=== PATIENT | female | born 1995 | race American Indian/Alaskan Native ===

== ENCOUNTER 2020-02-05 18:38 | Emergency (ER) | payer MEDICAID ==
[2020-02-05 19:01] VITALS: BP 120/82
[2020-02-05 21:41] LABS: Bacteria,Urine 1+ /HPF (Negative); Bilirubin,Urine NEG (Negative); Blood,Urine NEG (Negative); Color,Urine Amber (Yellow); Hyaline Casts,Urine 1 /LPF; Mucus,Urine 1+ /HPF; Urobilinogen,Urine < 2.0 mg/dL (<2.0)
[2020-02-05 21:42] LABS: HCG Qualitative,Urine Negative (Negative)
[2020-02-05] MEDS ORDERED: ONDANSETRON 4 MG ODT TAB PO ONE (22:27)
[2020-02-05] MEDS ORDERED: LIDOCAINE-MPF (1%) 10 MG/1 ML VIAL 5 ML INFILTRATI ONE (22:27)
[2020-02-05] MEDS ORDERED: ACETAMINOPHEN 500 MG TAB PO ONE (22:27)
--- NOTE | 2020-02-05 22:51 | Emergency Department Report ---
ED Female HPI - General Chief complaint: Urogenital-Female Stated complaint: UTI Source: patient Mode of arrival: Ambulatory Limitations: No Limitations - History of Present Illness Initial comments: Patient is a A2 24-year-old -[place] female with no past medical history presents to the ED with complaint of acute onset persistent dysuria, urinary frequency and urgency, and suprapubic pressure for the last 4 days. Patient states that she tried to drink water and cranberry juice with no relief. Patient denies vaginal bleeding, vaginal discharge, nausea, vomiting, fever, chills, diarrhea, low back pain, chest pain or shortness of breath and sore throat. MD Complaint: dysuria, pelvic pain, other (Urinary frequency and urgency; supr apubic pressure) -: Sudden, days(s) (4) Location: suprapubic, other (vaginal) Radiation: non-radiating Severity scale (0 -10): 5 Quality: cramping, aching Consistency: constant Improves with: none Worsens with: urination Are you Now?: No Last Menstrual Period: 02/01/20 EDC: 11/07/20 Associated Symptoms: denies other symptoms, abdominal pain (suprapubic pressure), loss of appetite, dysuria, other (Urinary frequency and urgency). denies: vaginal discharge, vaginal bleeding, nausea/vomiting, fever/chills, headaches, hematuria, rash, seizure, shortness of breath, syncope, weakness - Related Data Sexually active: Yes : 2 Para: 0 A: 2 Previous Rx's Medication Instructions Recorded Last Taken Type Ibuprofen [Motrin] 600 mg PO Q8H PRN #20 tablet 02/05/20 Unknown Rx Ondansetron [Zofran Odt] 4 mg PO Q6HR PRN #15 tab.rapdis 02/05/20 Unknown Rx Phenazopyridine [Pyridium] 200 mg PO TID #21 tab 02/05/20 Unknown Rx Sulfamethoxazole/Trimethoprim 1 each PO Q12H #20 tablet 02/05/20 Unknown Rx [Bactrim DS TAB] Allergies Allergy/AdvReac Type Severity Reaction Status Date / Time No Known Allergies Allergy Unverified 02/05/20 18:58 ED Review of Systems ROS: Stated complaint: UTI Other details as noted in HPI Constitutional: denies: chills, fever Eyes: denies: eye pain, eye discharge, vision change ENT: denies: ear pain, throat pain Respiratory: denies: cough, shortness of breath, wheezing Cardiovascular: denies: chest pain, palpitations Endocrine: no symptoms reported Gastrointestinal: abdominal pain (Suprapubic pressure). denies: nausea, vomiting, diarrhea Genitourinary: urgency, dysuria, frequency, other (Pelvic pressure). denies: he maturia, discharge, abnormal menses, dyspareunia Musculoskeletal: denies: back pain, joint swelling, arthralgia Skin: denies: rash, lesions Neurological: denies: headache, weakness, paresthesias Psychiatric: denies: anxiety, depression Hematological/Lymphatic: denies: easy bleeding, easy bruising ED Past Medical Hx - Past Medical History Previous Medical History?: Yes Additional medical history: anemia - Surgical History Past Surgical History?: No - Social History Smoking Status: Never Smoker Substance Use Type: Alcohol - Medications Home Medications: Home Medications Medication Instructions Recorded Confirmed Last Taken Type Ibuprofen [Motrin] 600 mg PO Q8H PRN #20 tablet 02/05/20 Unknown Rx Ondansetron [Zofran Odt] 4 mg PO Q6HR PRN #15 tab.rapdis 02/05/20 Unknown Rx Phenazopyridine [Pyridium] 200 mg PO TID #21 tab 02/05/20 Unknown Rx Sulfamethoxazole/Trimethoprim 1 each PO Q12H #20 tablet 02/05/20 Unknown Rx [Bactrim DS TAB] ED Physical Exam - General Limitations: No Limitations General appearance: alert, in no apparent distress - Head Head exam: Present: atraumatic, normocephalic, normal inspection - Eye Eye exam: Present: normal appearance, PERRL, EOMI Pupils: Present: normal accommodation - ENT ENT exam: Present: normal exam, normal orophraynx, mucous membranes moist, TM's normal bilaterally, normal external ear exam - Neck Neck exam: Present: normal inspection, full ROM - Respiratory Respiratory exam: Present: normal lung sounds bilaterally. Absent: respiratory distress, wheezes, rales, rhonchi, chest wall tenderness, accessory muscle use, decreased breath sounds, prolonged expiratory - Cardiovascular Cardiovascular Exam: Present: regular rate, normal rhythm, normal heart sounds. Absent: systolic murmur, diastolic murmur, rubs, gallop - GI/Abdominal GI/Abdominal exam: Present: soft, normal bowel sounds. Absent: tenderness, guarding, rebound, hyperactive bowel sounds, hypoactive bowel sounds, organomegaly - Bi-manual exam: Present: other (Pelvic exam deferred) - Extremities Exam Extremities exam: Present: normal inspection, full ROM, normal capillary refill - Back Exam Back exam: Present: normal inspection, full ROM. Absent: tenderness, CVA tenderness (R), CVA tenderness (L), muscle spasm, paraspinal tenderness, vertebral tenderness - Neurological Exam Neurological exam: Present: alert, oriented X3, CN II-XII intact, normal gait, reflexes normal - Psychiatric Psychiatric exam: Present: normal affect, normal mood - Skin Skin exam: Present: warm, dry, intact, normal color. Absent: rash ED Course Vital Signs 02/05/20 18:58 Temperature 98.9 F Pulse Rate 78 Respiratory 18 Rate Blood Pressure 120/82 O2 Sat by Pulse 99 Oximetry ED Medical Decision Making - Medical Decision Making This is a A2 24-year-old -[place] female with no past medical history presents to the ED with complaint of acute onset persistent dysuria, urinary frequency and urgency, and suprapubic pressure for the last 4 days. Patient states that she tried to drink water and cranberry juice with no relief. In the ED, patient is alert and oriented x3 and is not in distress. Urinalysis showed significant urinary tract infection. Patient was treated in the ED with pain medications, Rocephin 1 g intramuscular injection and also given Pyridium PO x1. On reevaluation, patient's pain is well controlled medications. Patient was discharged home on pain medication and antibiotics and advised to follow-up with her primary care physician or [facility] physician in 7 to 10 days for reevaluation. Patient was advised to return to the ED immediately if symptoms get worse. - Differential Diagnosis UTI; Pyelonephritis; STD; Bacterial vaginosis; Critical care attestation.: If time is entered above; I have spent that time in minutes in the direct care of this critically ill patient, excluding procedure time. ED Disposition Clinical Impression: Acute urinary tract infection Disposition: TO HOME OR SELFCARE Is pt being admited?: No Does the pt Need Aspirin: No Condition: Stable Instructions: Urinary Tract Infection, Adult, [id number] Additional Instructions: Lab test results show significant urinary tract infection. Therefore take pain medications and antibiotics with food, drink plenty of fluids and follow-up with your [facility] physician or primary care physician in 7 to 10 days for reevaluation. Return to the ED immediately if symptoms get worse. Prescriptions: Sulfamethoxazole/Trimethoprim [Bactrim DS TAB] 1 each PO Q12H #20 tablet Ibuprofen [Motrin] 600 mg PO Q8H PRN #20 tablet PRN Reason: Pain Phenazopyridine [Pyridium] 200 mg PO TID #21 tab Ondansetron [Zofran Odt] 4 mg PO Q6HR PRN #15 tab.rapdis PRN Reason: Nausea Referrals: [facility] [Provider Group] - 7-10 days Time of Disposition: 22:52 Print Language: LAO
== END 2020-02-05 23:14 | disposition home or self-care (01) ==
LOC: ED 18:38
DX: N39.0 Urinary tract infection, site not specified (principal)
CPT/HCPCS: 81001; 81025; 96372; 99283; J0696; Q0162